=== PATIENT | female | born 1950 | race Caucasian/White ===

== ENCOUNTER 2022-01-04 15:07 | Outpatient (REF) | payer OTHER, MEDICAID, SELFPAY ==
[2022-01-04 16:13] LABS: Hemoglobin 10.7 g/dl (12.0-16.0); Mean Corpuscular HGB Conc 32.4 g/dl (31.0-35.0); Mean Corpuscular Hemoglobin 29.2 pg (27.0-33.0); Mean Corpuscular Volume 90.2 fL (80.0-98.0); Mean Platelet Volume 10.3 fL (9.4-12.3); Platelet Count 355 X10*3/uL (160-400); Red Blood Count 3.66 X10*6/uL (4.20-5.50); Red Cell Distribution Width 16.5 % (11.0-16.0); White Blood Count 8.9 X10*3/uL (4.8-10.8)
[2022-01-04 16:38] LABS: C Reactive Protein 0.07 mg/dL (< or = 0.50)
[2022-01-04 16:50] LABS: Erythrocyte Sedimentation Rate 20 MM/HR (0-20)
== END 2022-01-04 15:08 | disposition home or self-care (01) ==
LOC: HO.LAB 15:07
PROVIDERS: PCP Physician Assistant; Visit Provider Ophthalmology
DX: M31.5 Giant cell arteritis with polymyalgia rheumatica (principal)
CPT/HCPCS: 36415; 85027; 85652; 86140

== ENCOUNTER 2023-03-18 07:11 | Day surgery (SDC) | payer OTHER, MEDICAID, SELFPAY ==
[2023-03-14 08:39] VITALS: BMI 26.1
--- NOTE | 2023-03-15 08:15 | MHC.SHP ---
Pre-Procedural Eval Section A Date of Service: 03/15/23 The patient is an INPATIENT: No Changes since office visit: No Cold of Flu in the past 2 weeks, No New Medical Problems, No Changes in Medication and No Patient answered all questions The History & Physical has been completed within 30 days and I have reviewed it.: Yes Section B Chief Complaint: Age-related nuclear cataract, right eye Allergies: Allergies Allergy/AdvReac Type Severity Reaction Status Date / Time orange juice Allergy Vomiting Verified 03/11/23 13:19 Plan Diagnosis/Plan: Unchanged I have reviewed the history and physical and performed a pertinent physical examination on my patient. No changes have occurred unless specified. Time Spent With Patient Time: Total time managing care of this patient today ____ minutes.
[2023-03-18] VITALS (7 sets, daily range): BP systolic 113–147; BP diastolic 57–89; PULSE 80–97; RESP 15–20; TEMP 36.1–36.6; O2SAT 97–100
[2023-03-18] MEDS: Lactated Ringers 500 ML 50 ML IV (09:06)
[2023-03-18] MEDS: Phenylephrine HCL 2.5% Oph SoL 2 ML BOTTLE 1 DROP EYE-RIGHT ×3 (09:07→09:32)
[2023-03-18] MEDS: Cyclopentolate 1 % Ophth Sol 2 ML DRPBTL 1 DROP EYE-RIGHT ×3 (09:07→09:32)
[2023-03-18] MEDS: Ketorolac Tromethamine 0.5% Op 5 ML DROPS 1 DROP EYE-RIGHT ×3 (09:07→09:32)
[2023-03-18] MEDS: Tropicamide 1 % Ophth Sol 3 ML BTL 1 DROP EYE-RIGHT ×3 (09:07→09:32)
[2023-03-18] MEDS: Tetracaine HCl/PF 0.5% Oph Sol 4 ML DROPS 1 DROP EYE-RIGHT ×2 (09:07→09:29)
--- NOTE | 2023-03-18 09:17 | PC.NURSE ---
attempt and insertion of IV completed by [facility] rn
--- NOTE | 2023-03-18 09:25 | HO.ANESPROP2 ---
HPI - Anesthesia Eval Consult details Narrative: 73yo female patient for Right Cataract extraction, IOL insertion PMFSH Active Problems Active Problems: FADUMO- uses pillow. No CPAP Parkinson's DM HTN H/o CVA - many years ago(per daughter) Dementia Last dose of eliquis this morning 03/18/2023 Past Medical History Medical History Tumor Parkinson disease Thyroid disease Diabetes DVT (deep venous thrombosis) Constipation Sleep apnea HTN (hypertension) Dementia Schizoaffective disorder, bipolar type CVA (cerebral vascular accident) Kidney stone Elevated cholesterol Family History Family history of problems with anesthesia: No Surgical History Surgical History H/O section Hx of shoulder surgery Hx of brain surgery History of Problems with Anesthesia: No Social History Social History Are you a primary certified social workers in health care to a significant other at home: No Do you presently have visiting nurse or other home services: Yes ([employer]) Patient Tobacco Use Status: Never used Tobacco Use of substances other than those prescribed or required for medical reasons: No Advance Directives: No Advance Directives Information Provided: Yes Advance Directives on File: No Recently lost weight without trying: No Nutrition Risks: No Nutritional Risk Patient : No : No Poor oral hygiene: No Meds Allergies Allergy/AdvReac Type Severity Reaction Status Date / Time orange juice Allergy Vomiting Verified 03/11/23 13:19 cranberry AdvReac Vomiting Verified 03/18/23 09:45 Active Medications: Current Medications Lactated Ringer's (Lr) 500 mls @ 50 mls/hr IV .Q10H CYRUS Stop: 03/18/23 16:59 Last Admin: 03/18/23 09:06 Dose: 50 mls/hr Lactated Ringer's (Lr) 500 mls @ 50 mls/hr IVCONT .Q10H CYRUS Povidone Iodine (Povidone Iodine 5 % Ophth Soln 30 Ml Bottle) 1 appl EYE-RIGHT PREOP PRN PRN Reason: Pre-Op Surgical Implant Prophy Home Medications Medication Instructions Recorded Confirmed Last Taken Type apixaban 5 mg tablet (Eliquis) 5 mg PO BID 03/11/23 03/11/23 03/18/23 History ascorbic acid (vitamin C) 500 mg 500 mg PO DAILY 03/11/23 03/11/23 Unknown History tablet (Vitamin C) calcium carbonate 500 mg calcium 500 mg PO DAILY 03/11/23 03/11/23 Unknown History (1,250 mg) tablet (Oyster Shell Calcium 500) levothyroxine 75 mcg tablet 75 mcg PO DAILY 03/11/23 03/11/23 03/18/23 History magnesium oxide 400 mg PO DAILY 03/11/23 03/11/23 Unknown History megestrol 40 mg tablet 40 mg PO BID 03/11/23 03/11/23 Unknown History metformin 500 mg tablet 500 mg PO BID 03/11/23 03/11/23 Unknown History olmesartan 5 mg tablet 5 mg PO BEDTIME 03/11/23 03/11/23 Unknown History omega 3-kik-twy-fish oil 1,200 mg 1 cap PO BID 03/11/23 03/11/23 Unknown History (144 mg-216 mg) capsule (Fish Oil) pantoprazole 40 mg granules 40 mg PO DAILY 03/11/23 03/11/23 03/18/23 History delayed-release for susp in packet quetiapine 300 mg tablet,extended 300 mg PO BEDTIME 03/11/23 03/11/23 Unknown History release 24 hr rosuvastatin 5 mg tablet 5 mg PO DAILY 03/11/23 03/11/23 Unknown History sertraline 50 mg tablet 50 mg PO DAILY 03/11/23 03/11/23 03/18/23 History zinc acetate 50 mg (zinc) capsule 50 mg PO DAILY 03/11/23 03/11/23 Unknown History Exam Exam Date and Time: March 18, 2023 0925 Height,Weight and Vital Signs: Height 4 ft 11 in Weight 58.513 kg Last Vital Signs Temp 97.9 F 03/18/23 09:09 Pulse 96 03/18/23 09:09 Resp 18 03/18/23 09:09 BP 113/58 L 03/18/23 09:09 Pulse Ox 98 03/18/23 09:09 O2 Del Method Room Air 03/18/23 09:09 Pertinent Lab Results Pertinent Lab Results: Lab Results 03/18/23 Range/Units 09:33 POC Glucose 120 H (60-115) mg/dL Airway Mallampati Class: III TM Dist: >3cm Neck ROM: Full Loose/Missing/Broken Teeth: Yes (Some missing. Denies broken or loose teeth) Heart: RRR Lungs: Clear anteriorly Assessment and Plan Assessment Anesthesia Assessment: Anesthesia Plan Discussed and Chart Reviewed Final Anesthetic Review Family History of Problems with Anesthesia: No History of Problems with Anesthesia: No NPO: Yes ASA Class: III Final Preanesthetic Review: No Changes in Pt Med Stat, Meds/Allgs Chart Reviewed, Consent Obtained/Reviewed and Anes Risks/Benef Reviewed Patient Risk: Intermediate Procedure Risk: Low Assessment/Block/Sedation in SS: Assess/Block/Sedation-SS Anesthetic Plan Anesthetic Plan: GA and MAC: Disposition: Standard PACU
[2023-03-18 09:38] LABS: Glucose, Whole Blood 120 mg/dL (60-115)
--- NOTE | 2023-03-18 09:39 | PC.NURSE ---
patient given all drops as ordered for cataracts. pharmacy needed to re-order drops as they had timed out from original order placement. kam, from [employer] [employer] [facility] present to review all information with patient and daughter and anesthesia.
--- NOTE | 2023-03-18 10:16 | HO.PNOPHT ---
Ophthalmology Procedure Procedure Date of Service: 03/18/23 Ophthalmology Viscoelastic: Healjoseph Duet Dual Pack Pro Ophthalmology Lenses: TECSOCORRO [id number] (16) Procedure Notes: PREOPERATIVE DIAGNOSIS: Decreased visual acuity right eye secondary to cataract POSTOPERATIVE DIAGNOSIS: Same PROCEDURE: Right cataract extraction with intraocular lens insertion SURGEON: Zach Mcmullen M.D. ANESTHESIA: Topical/MAC changed to General ESTIMATED BLOOD LOSS: None COMPLICATIONS: fractured haptic After obtaining informed consent, the patient was brought to the operating room suite and placed in the supine position. After adequate sedation per anesthesia, topical drops of Tetracaine were given to the right eye. The eye was then prepped and draped in the usual sterile fashion. The operating room microscope was then positioned over the operative eye and a lid speculum placed. A paracentesis was created. Viscoelastic was then instilled into the anterior chamber. A three plane incision was then created temporally, utilizing a 2.85 mm keratome. Capsulotomy forceps were then utilized to create a circular tear capsulotomy. Hydrodissection and hydrodelineation were carried out until adequate mobilization of the nucleus occurred. Phacoemulsification was then utilized to remove the dense central nucleus followed by removal of the cortical material utilizing the automated aspiration irrigation unit. Viscoelastic was instilled into the posterior capsular bag followed by placement of a posterior chamber intraocular lens. The lens trailing haptic fractured during insertion requiring an intraocular lens exchange. Viscoat was placed anterior and posterior to the lens. The lens was folded intraocularly and removed from the eye. A new lens was placed in the bag without diffiulty.The residual Viscoelastic was then removed utilizing the automated IA machine. The wound was checked and found to be watertight. The patient tolerated the procedure well and the lid speculum was removed. Intracameral injection of Vigamox 0.1 mL followed by a subtenon injection of Kenalog-40 0.2 mL were administered. The patient will be seen in the a.m.
--- NOTE | 2023-03-18 11:54 | HO.PNOPHT ---
Ophthalmology Procedure Procedure Date of Service: 03/18/23 Ophthalmology Viscoelastic: Healon Duet Dual Pack Pro Ophthalmology Lenses: TECNIS [id number] (18.5) Procedure Notes: PREOPERATIVE DIAGNOSIS: Decreased visual acuity right eye secondary to cataract POSTOPERATIVE DIAGNOSIS: Same PROCEDURE: Right cataract extraction with intraocular lens insertion SURGEON: Zach Mcmullen M.D. ANESTHESIA: General ESTIMATED BLOOD LOSS: None COMPLICATIONS: None After obtaining informed consent, the patient was brought to the operating room suite and placed in the supine position. After adequate sedation per anesthesia, topical drops of Tetracaine were given to the right eye. The eye was then prepped and draped in the usual sterile fashion. The operating room microscope was then positioned over the operative eye and a lid speculum placed. A paracentesis was created. Viscoelastic was then instilled into the anterior chamber. A three plane incision was then created temporally, utilizing a 2.85 mm keratome. Capsulotomy forceps were then utilized to create a circular tear capsulotomy. Hydrodissection and hydrodelineation were carried out until adequate mobilization of the nucleus occurred. Phacoemulsification was then utilized to remove the dense central nucleus followed by removal of the cortical material utilizing the automated aspiration irrigation unit. Viscoelastic was instilled into the posterior capsular bag followed by placement of a posterior chamber intraocular lens without difficulty. The residual Viscoelastic was then removed utilizing the automated IA machine. The wound was checked and found to be watertight. The patient tolerated the procedure well and the lid speculum was removed. Intracameral injection of Vigamox 0.1 mL followed by a subtenon injection of Kenalog-40 0.2 mL were administered. The patient will be seen in the a.m.
--- NOTE | 2023-04-01 11:59 | HO.PNOPHT ---
Ophthalmology Procedure Procedure Date of Service: 03/18/23 Ophthalmology Viscoelastic: Healon Duet Dual Pack Pro Ophthalmology Lenses: TECNIS [id number] (18.5) Procedure Notes: PREOPERATIVE DIAGNOSIS: Decreased visual acuity left eye secondary to cataract POSTOPERATIVE DIAGNOSIS: Same PROCEDURE: Left cataract extraction with intraocular lens insertion SURGEON: Zach Mcmullen M.D. ANESTHESIA: Topical/MAC ESTIMATED BLOOD LOSS: None COMPLICATIONS: None After obtaining informed consent, the patient was brought to the operation room suite and placed in the supine position. After adequate sedation per anesthesia, topical drops of Tetracaine were given to the left eye. The eye was then prepped and draped in the usual sterile fashion. The operating room microscope was then positioned over the operative eye and a lid speculum placed. A paracentesis was created. Viscoelastic was then instilled into the anterior chamber. A three plane incision was then created temporally, utilizing a 2.85 mm keratome. Capsulotomy forceps were then utilized to create a circular tear capsulotomy. Hydrodissection and hydrodelineation were carried out until adequate mobilization of the nucleus occurred. Phacoemulsification was then utilized to remove the dense central nucleus followed by removal of the cortical material utilizing the automated aspiration irrigation unit. Viscoat elastic was instilled into the posterior capsular bag followed by placement of a posterior chamber intraocular lens without difficulty. The residual Viscoat elastic was then removed utilizing the automated IA machine. The wound was check and found to be watertight. The patient tolerated the procedure well and the lid speculum was removed. Intracameral injection of Vigamox 0.1 mL followed by a subtenon injection of Kenalog-40 0.2 mL were administered. The patient will be seen in the a.m.
== END 2023-03-18 12:40 | disposition home or self-care (01) ==
PROVIDERS: PCP Physician Assistant; Visit Provider Ophthalmology
PROC: (CPT 66985; principal; 2023-03-18 11:00)
DX: T85.29XA Other mechanical complication of intraocular lens, initial encounter (principal); H25.11 Age-related nuclear cataract, right eye; Y83.1 Surgical operation with implant of artificial internal device as the cause of abnormal reaction of the patient, or of later complication, without mention of misadventure at the time of the procedure; Y92.234 Operating room of hospital as the place of occurrence of the external cause; Y77.2 Prosthetic and other implants, materials and accessory ophthalmic devices associated with adverse incidents; H25.12 Age-related nuclear cataract, left eye; H52.4 Presbyopia; H18.413 Arcus senilis, bilateral; H43.393 Other vitreous opacities, bilateral; I10 Essential (primary) hypertension; E11.9 Type 2 diabetes mellitus without complications; E07.9 Disorder of thyroid, unspecified; G20.A1 Parkinson's disease without dyskinesia, without mention of fluctuations; F02.80 Dementia in other diseases classified elsewhere, unspecified severity, without behavioral disturbance, psychotic disturbance, mood disturbance, and anxiety; G44.89 Other headache syndrome; I82.402 Acute embolism and thrombosis of unspecified deep veins of left lower extremity; Z86.73 Personal history of transient ischemic attack (TIA), and cerebral infarction without residual deficits; Z79.01 Long term (current) use of anticoagulants; Z79.84 Long term (current) use of oral hypoglycemic drugs; Z79.899 Other long term (current) drug therapy
CPT/HCPCS: 66984; 66986; 82947; J2250; J2371; J2704; J3010; J3301; V2632